=== PATIENT | male | born 1970 | race Caucasian/White ===

== ENCOUNTER 2017-04-03 09:53 | Emergency (ER) | payer OTHER ==
[2017-04-03 09:54] VITALS: BMI 26.4
--- NOTE | 2017-04-03 10:24 | ED PDOC ---
Arrival/HPI - General Time Seen by Provider: 04/03/17 10:00 Historian: Patient - History of Present Illness Narrative History of Present Illness (Text): 04/03/17 10:16 46yo male present with complaint of urinary frequency, dysuria, right flank pain x days. States he started having difficultly urinating this morning. Notes history of right kidney stone in 2014. He denies nausea, vomiting, diarrhea, fever, chills, hematuria, back pain, any other complaint. Past Medical History - Provider Review Nursing Documentation Reviewed: Yes - Tetanus Immunization Tetanus Immunization: Unknown - Cardiac Hx Pacemaker: No - Neurological Hx Paralysis: No - Renal Hx Kidney Stones: Yes - Hematological/Oncological Hx Blood Transfusions: No - Musculoskeletal/Rheumatological Hx Musculoskeletal Disorders: No - Psychiatric Hx Emotional Abuse: No Hx Physical Abuse: No Hx Substance Use: No - Past Surgical History Past Surgical History: No Previous - Surgical History Other/Comment: tube in kidney 06/09/14 - Anesthesia Hx Anesthesia Reactions: No Hx Malignant Hyperthermia: No - Suicidal Assessment Feels Threatened In Home Enviroment: No Family/Social History - Physician Review Nursing Documentation Reviewed: Yes Family/Social History: Unknown Family HX Smoking Status: Light Smoker < 10 Cigarettes Daily Hx Alcohol Use: No Hx Substance Use: No Allergies/Home Meds Allergies/Adverse Reactions: Allergies No Known Allergies Allergy (Verified 06/15/14 11:16) Review of Systems - Physician Review All systems were reviewed & negative as marked: Yes - Review of Systems Constitutional: Normal Eyes: Normal ENT: Normal Respiratory: Normal Cardiovascular: Normal Gastrointestinal: Abdominal Pain (Right flank pain). absent: Constipation, Diarrhea, Nausea, Vomiting, Hematochezia, Hematemesis Genitourinary Male: Dysuria, Frequency. absent: Hematuria Musculoskeletal: Normal Skin: Normal Neurological: Normal Endocrine: Normal Hemo/Lymphatic: Normal Psychiatric: Normal Physical Exam Vital Signs Reviewed: Yes Vital Signs Temp Pulse Resp BP Pulse Ox 04/03/17 13:20 65 18 128/68 99 04/03/17 12:36 67 18 132/71 99 04/03/17 11:27 98.0 F 69 18 134/79 98 04/03/17 10:20 98 F 75 16 136/88 100 Temperature: Afebrile Blood Pressure: Normal Pulse: Regular Respiratory Rate: Normal Appearance: Positive for: Well-Appearing, Non-Toxic, Comfortable Pain Distress: Mild Mental Status: Positive for: Alert and Oriented X 3 - Systems Exam Head: Present: Atraumatic, Normocephalic Pupils: Present: PERRL Extroacular Muscles: Present: EOMI Conjunctiva: Present: Normal Mouth: Present: Moist Mucous Membranes Neck: Present: Normal Range of Motion Respiratory/Chest: Present: Clear to Auscultation, Good Air Exchange. No: Respiratory Distress, Accessory Muscle Use Cardiovascular: Present: Regular Rate and Rhythm, Normal S1, S2. No: Murmurs Abdomen: Present: Normal Bowel Sounds, Other (Soft). No: Tenderness, Distention , Peritoneal Signs, Rebound, Guarding, McBurney's Point Tender, Rovsing's Sign Present Back: Present: Normal Inspection. No: CVA Tenderness Upper Extremity: Present: Normal Inspection. No: Cyanosis, Edema Lower Extremity: Present: Normal Inspection. No: Edema Neurological: Present: GCS=15, CN II-XII Intact, Speech Normal Skin: Present: Warm, Dry, Normal Color. No: Rashes Psychiatric: Present: Alert, Oriented x 3, Normal Insight, Normal Concentration Medical Decision Making ED Course and Treatment: 04/03/17 19:51 PT's pain improved in ED with analgesic. On re evaluation he was comfortable and hemodynamically stable. His lab was unremarkable. Nitrite was positive in the UA Abdominal/Pelvic CT - 6mm calculus on distal right ureter Case was LEXA Velasquez and he requested abdominal xray with oblique view. States patient should be DC home with Flomax and Percocet and see him tomorrow in the office. Result and plan was DW the pt. Cipro was added secondary to the positive nitrite. He was strongly advised to f/u with Dr. velasquez. Advised to drink plenty of fluid. TRT ED for worsening symptoms. - Lab Interpretations Lab Results: 04/03/17 10:50 04/03/17 10:50 Lab Results 04/03/17 10:50: Sodium 137, Potassium 4.1, Chloride 100, Carbon Dioxide 28, Anion Gap 13, BUN 17, Creatinine 1.0, Est GFR ( Amer) > 60, Est GFR (Non- Af Amer) > 60, Random Glucose 102, Calcium 9.8, Total Bilirubin 0.9, AST 26, ALT 60 H, Alkaline Phosphatase 62, Total Protein 7.9, Albumin 4.7, Globulin 3.2 , Albumin/Globulin Ratio 1.5 04/03/17 10:50: PT 12.7 H, INR 1.15 H, APTT 32.4 04/03/17 10:50: WBC 6.9, RBC 4.76, Hgb 14.0, Hct 40.7 L, MCV 85.5, MCH 29.4, MCHC 34.4, RDW 13.5, Plt Count 169, MPV 10.8, Gran % 60.1, Lymph % (Auto) 26.5, Jenkins % (Auto) 9.6 H, Eos % (Auto) 3.2, Baso % (Auto) 0.6, Gran # 4.13, Lymph # 1.8, Jenkins # 0.7 H, Eos # 0.2, Baso # 0.04 04/03/17 10:40: Urine Color [place], Urine Appearance Sl cloudy, Urine pH 5.0, Ur Specific [place] 1.020, Urine Protein 100 H, Urine Glucose (UA) 250 H, Urine Ketones Trace H, Urine Blood Moderate H, Urine Nitrate Positive H, Urine Bilirubin Negative, Urine Urobilinogen >=8.0, Ur Leukocyte Esterase Trace H, Urine RBC 15 - 20, Urine WBC 2 - 5 - RAD Interpretation Radiology Orders: 04/03/17 10:15 ABD & PELVIS W/O PO OR IV CONT [CT] Stat 04/03/17 12:38 ABDOMEN MULTIPLE VIEW (w/OBL) [RAD] Stat - Medication Orders Current Medication Orders: Discontinued Medications Sodium Chloride (Sodium Chloride 0.9%) 1,000 mls @ 999 mls/hr IV .Q1H1M STA Stop: 04/03/17 11:31 Last Admin: 04/03/17 10:35 Dose: 999 mls/hr eMAR Start Stop Document 04/03/17 10:35 GINGER (Rec: 04/03/17 10:44 GINGER [id number]) Intravenous Solution Start Date 04/03/17 Start Time 10:35 End Date 04/03/17 End time 11:35 Total Infusion Time 60 Ketorolac Tromethamine (Toradol) 30 mg IVP STAT STA Stop: 04/03/17 10:32 Last Admin: 04/03/17 10:34 Dose: 30 mg MAR Pain Assessment Document 04/03/17 10:34 GINGER (Rec: 04/03/17 10:36 GINGER [id number]) Pain Reassessment Is this a pain reassessment? Yes Pain Scale Used Pain Scale Used Numeric Location Left, Right or Bilateral Right Pain Location Body Site Abdomen Description Description Sharp Intensity of Pain at present 8 Pain Behavior Irritability IVP Administration Document 04/03/17 10:34 GINGER (Rec: 04/03/17 10:36 GINGER [id number]) Charges for Administration # of IVP Administrations 1 Tamsulosin HCl (Flomax) 0.4 mg PO STAT STA Stop: 04/03/17 12:48 Disposition/Present on Arrival - Present on Arrival Any Indicators Present on Arrival: No History of DVT/PE: No History of Uncontrolled Diabetes: No Urinary Catheter: No History Surgical Site Infection Following: None - Disposition Have Diagnosis and Disposition been Completed?: Yes Diagnosis: Kidney stone Disposition: HOME/ ROUTINE Disposition Time: 13:30 Patient Plan: Discharge Condition: STABLE Discharge Instructions (ExitCare): Kidney Stones (ED), How to Strain Your Urine (ED) Additional Instructions: Follow up with a Urologist, Dr. velasquez Return to ED for worsening or new symptoms Prescriptions: Ciprofloxacin HCl [Cipro] 500 mg PO BID #14 tablet oxyCODONE/Acetaminophen [Percocet 5/325 mg Tab] 1 ea PO Q6 #8 tab Tamsulosin [Flomax] 0.4 mg PO DAILY #4 cap Referrals: PCPNILA [Primary Care Provider] - Follow up with primary Pita Velasquez MD [Staff Provider] - Follow up with primary Forms: [email or web address] (Vietnamese)
[2017-04-03] MEDS ORDERED: Sodium Chloride 0.9% 1,000 ML IV STA (10:31)
[2017-04-03 10:55] LABS: BASO # 0.04 K/mm3 (0.0-2.0); BASO % 0.6 % (0.0-3.0); EOS # 0.2 (0.0-0.7); EOS % 3.2 % (1.5-5.0); GRAN # 4.13 (1.4-6.5); GRAN % 60.1 % (50.0-68.0); HEMATOCRIT 40.7 % (42.0-52.0); LYMPH # 1.8 (1.2-3.4); LYMPH % 26.5 % (22.0-35.0); MEAN CELL VOLUME 85.5 fl (80.0-105.0); MEAN CORPUSCULAR HEMOGLOBIN 29.4 pg (25.0-35.0); MEAN CORPUSCULAR HGB CONC 34.4 g/dl (31.0-37.0); MEAN PLATELET VOLUME 10.8 fl (7.0-11.0); MONO # 0.7 (0.1-0.6); MONO % 9.6 % (1.0-6.0); RED CELL DISTRIBUTION WIDTH 13.5 % (11.5-14.5); WHITE BLOOD COUNT 6.9 10^3/ul (4.5-11.0)
[2017-04-03 11:04] LABS: ALB/GLOB RATIO 1.5 (1.1-1.8); ALKALINE PHOSPHATASE 62 U/L (38-126); ALT/SGPT 60 U/L (7-56); AST/SGOT 26 U/L (17-59); BILIRUBIN,TOTAL 0.9 mg/dL (0.2-1.3); BLOOD UREA NITROGEN 17 mg/dL (7-21); CALCIUM 9.8 mg/dL (8.4-10.5); CARBON DIOXIDE 28 mmol/L (21-33); CHLORIDE 100 mmol/L (98-107); GFR AFRICAN-AMERICAN > 60; GLUCOSE,RANDOM 102 mg/dL (70-110); POTASSIUM 4.1 mmol/L (3.6-5.0); SODIUM 137 mmol/L (132-148); TOTAL PROTEIN 7.9 g/dL (5.8-8.3)
[2017-04-03 11:28] LABS: INR 1.15 (0.93-1.08); PARTIAL THROMBOPLASTIN TIME 32.4 Seconds (25.1-36.5)
[2017-04-03 11:33] VITALS: RESP 18; TEMP 98
--- NOTE | 2017-04-03 11:33 | CT ---
PROCEDURE: CT Abdomen and Pelvis without intravenous contrast HISTORY: Right flank pain COMPARISON: None. TECHNIQUE: Without contrast.. Contrast Dose: Radiation dose: Total exam DLP = 707 mGy-cm. This CT exam was performed using one or more of the following dose reduction techniques: Automated exposure control, adjustment of the mA and/or kV according to patient size, and/or use of iterative reconstruction technique. FINDINGS: LOWER THORAX: Unremarkable. LIVER: Unremarkable. No gross lesion or ductal dilatation. GALLBLADDER AND BILE DUCTS: Unremarkable. PANCREAS: Unremarkable. No gross lesion or ductal dilatation. SPLEEN: Unremarkable. ADRENALS: Unremarkable. No mass. KIDNEYS AND URETERS: There is a 6 mm stone in the right distal ureter. This produces moderate hydroureter and hydronephrosis. The stone is best visualized on coronal image 61 and axial image 143 of series 2 VASCULATURE: Unremarkable. No aortic aneurysm. BOWEL: Unremarkable. No obstruction. No gross mural thickening. APPENDIX: Unremarkable. Normal appendix. PERITONEUM: Unremarkable. No free fluid. No free air. LYMPH NODES: Unremarkable. No enlarged lymph nodes. BLADDER: Unremarkable. REPRODUCTIVE: Unremarkable. BONES: No acute fracture. OTHER FINDINGS: None. IMPRESSION: There is a 6 mm stone in the right distal ureter. This produces moderate hydroureter and hydronephrosis
[2017-04-03 12:37] VITALS: O2SAT 99
--- NOTE | 2017-04-03 13:17 | RAD ---
HISTORY: abdominal pain . A same-day CT abdomen and pelvis exam is noted with a 6 mm stone reported in the distal right ureter and associated moderate hydroureter and hydronephrosis. Based on that CT exam calculus bend projected at the mid SI joint level. COMPARISON: 06/15/2014 FINDINGS: BOWEL: Moderate stool retention. This limits optimal evaluation for urolithiasis. Patient has a history of urolithiasis. . No free air. No bowel obstruction suggested BONES: Bilateral hip arthrosis right greater than left. OTHER FINDINGS: Prior right ureteral stent removed. Based on the same-day CT study, a 4 to 5 mm projects over the right sacral foramina on the frontal view cyst difficult to corroborate on the oblique views. It is the only potential radiographic right ureteral stone correlate appreciated based on the same-day CT depiction IMPRESSION: Right 4- 5 mm potential radiographic right ureteral stone correlate - to the same-day CT depiction
[2017-04-03 13:33] LABS: URINE BILIRUBIN NEGATIVE (NEGATIVE); URINE BLOOD MODERATE (NEGATIVE); URINE GLUCOSE (UA) 250 mg/dL (NEGATIVE); URINE KETONE TRACE mg/dL (NEGATIVE); URINE LEUKOCYTE ESTERASE TRACE Leu/uL (NEGATIVE); URINE PROTEIN 100 mg/dL (<30 mg/dL); URINE UROBILINOGEN >=8.0 E.U./dL (<1 E.U./dL)
[2017-04-03 13:34] LABS: URINE APPEARANCE SL CLOUDY (CLEAR); URINE COLOR AMBER (YELLOW)
[2017-04-03 13:35] LABS: URINE RBC 15 - 20 /hpf (0-2)
[2017-04-03 13:46] VITALS: BP 128/68; PULSE 65
== END 2017-04-03 13:51 | disposition home or self-care (01) ==
LOC: ED 09:53
DX: N20.0 Calculus of kidney (principal); F17.210 Nicotine dependence, cigarettes, uncomplicated
CPT/HCPCS: 74022; 74176; 80053; 81001; 85025; 85610; 85730; 87086; 96361; 96374; 99284; J1885; J7040